=== PATIENT | male | born 1980 | race Caucasian/White ===

== ENCOUNTER → 2017-06-29 | Outpatient (REF) | payer OTHER | LOC: M SFHCLERA 11:11 | PROVIDERS: ATTEND Physician Assistant | DX: J02.9 Acute pharyngitis, unspecified (principal) | CPT/HCPCS: 87070; G0463 ==

== ENCOUNTER → 2017-07-16 | Outpatient (CLI) | payer OTHER ==
[~2017-07-16] MED LIST: ISOVUE-370 76% 100ML VIAL (Q9967) As Ordered ONE
--- NOTE | 2017-07-16 14:06 | REP ---
CT HEAD WITHOUT AND WITH CONTRAST: HISTORY: Neck pain. CONTRAST: Isovue 370, 75 mL. There is no intraparenchymal hemorrhage, mass, or midline shift. There is no abnormal enhancement. The ventricular system is normal in appearance. There is no extracerebral collection. The visualized sinuses are clear. IMPRESSION: There is no intracranial lesion. Signed by Brennan Naik MD 07/16/2017 02:10 P
--- NOTE | 2017-07-16 14:15 | REP ---
CT NECK WITH CONTRAST: HISTORY: Neck pain. CONTRAST: Isovue 370, 75 mL. The naso-, jacinta- and hypopharynx, larynx and subglottic trachea are normal in appearance. The salivary glands are normal in size and density. The left thyroid lobe is enlarged and heterogeneous in density. Several calcifications are present in the left thyroid lobe. The left thyroid lobe measures 3.4 cm in transverse by 4.5 cm in AP by 5.6 cm in cephalocaudal dimensions. The right thyroid lobe is normal in size and density. Enlarged lymph node masses measuring 1.6 and 1.4 cm in width are present the left posterior triangle at the level of the hypopharynx and larynx. An enlarged lymph node mass 1.4 cm in width is present in the left sternocleidomastoid muscle at the level of the hypopharynx. Enlarged lymph nodes measuring 1.1 and 1.7 cm in width are present in the left supraclavicular area. Small lymph nodes less than 1 cm in size are present in the submandibular areas and right posterior triangle. Minimal degenerative change is present in the cervical spine. The lung apices are clear. A retention cyst or polyp is present in the right maxillary sinus. IMPRESSION: There is enlargement of the left thyroid lobe with associated adenopathy as described above consistent with carcinoma. Signed by Brennan Naik MD 07/16/2017 02:33 P
== END ==
LOC: M RAD 12:59
PROVIDERS: ATTEND Nurse Practitioner Family
DX: E04.9 Nontoxic goiter, unspecified (principal); R59.0 Localized enlarged lymph nodes
CPT/HCPCS: 70470; 70491; Q9967